=== PATIENT | male | born 1985 | race Caucasian/White ===

== ENCOUNTER 2019-08-14 18:13 | Inpatient (IN) | payer OTHER ==
[~2019-08-14] VITALS: Ht 177.8 cm; Wt 72.6 kg
[2019-08-14 18:15] VITALS: BP 121/85
--- NOTE | 2019-08-14 18:15 | NUR ---
PT PLACED IN CHAIR C.
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
--- NOTE | 2019-08-14 18:34 | NUR ---
CALL АННА AT [phone] FOR DISCHARGE
[2019-08-14] MEDS ORDERED: LIDOCAINE 2% 1000 MG/50 ML VIAL INJ ONE (19:10)
--- NOTE | 2019-08-14 19:10 | NUR ---
JOSE ENRIQUE GAVE REPORT TO PM BRANDIE RN.
--- NOTE | 2019-08-14 19:17 | NUR ---
EKG COMPLETE. LIDOCAINE PULLED OUT OF PYXIS. WOUND CARE SET UP AT BEDSIDE FOR ERMD. PT DROWSY AT THIS TIME, DIFFICULT TO AROUSE. PT ALTERED AT THIS TIME.
--- NOTE | 2019-08-14 19:26 | NUR ---
PT TAKEN TO CT VIA [facility]. ACCOMPANIED BY ROCIO MCALLISTER.
--- NOTE | 2019-08-14 19:45 | NUR ---
PT BACK FROM CT
--- NOTE | 2019-08-14 20:00 | NUR ---
ERMD DID NOT USE LIDO DUE TO USING KAITY FOR WOUND CARE.
[2019-08-14 20:10] LABS: BASOPHILS % (AUTO) 0.3 % (0.0-2.0); EOSINOPHILS # (AUTO) 0.1 K/uL (0-0.4); EOSINOPHILS % (AUTO) 0.7 % (0.0-4.0); HEMOGLOBIN 14.4 g/dL (12.0-18.0); LYMPHOCYTES # (AUTO) 1.6 K/uL (2.0-11.5); LYMPHOCYTES % (AUTO) 17.9 % (20.5-51.1); MEAN CORPUSCULAR HEMOGLOBIN 31 pg (27-31); MEAN CORPUSCULAR HGB CONC 34 g/dL (33-37); MEAN CORPUSCULAR VOLUME 91.7 fL (80-94); MONOCYTES # (AUTO) 0.5 K/uL (0.8-1.0); NEUTROPHILS # (AUTO) 6.7 K/uL (1.8-7.7); NEUTROPHILS % (AUTO) 75.1 % (42.2-75.2); PLATELET COUNT (AUTO) 271 K/uL (140-450); RED BLOOD CELL COUNT(AUTO) 4.69 MIL/uL (4.20-6.10); RED CELL DISTRIBUTION WIDTH 13.2 % (11.6-13.7)
--- NOTE | 2019-08-14 20:44 | NUR ---
PT SLEEPING IN BED. REMAINS DROWSY AND DIFFICULT TO AROUSE. OPENS EYES WHEN ASKED QUESTIONS BUT UNABLE TO PROVIDE ANSWER AT THIS TIME.
[2019-08-14 21:34] LABS: ANION GAP 13.2 (8-16); CARBON DIOXIDE 26.8 mmol/L (21-32); CHLORIDE 104 mmol/L (98-107); GLUCOSE 87 mg/dL (74-106); SODIUM SERUM 140 mmol/L (136-145)
[2019-08-14 21:35] LABS: ACETAMINOPHEN 3.1 ug/ml (10-30); ALBUMIN 3.9 g/dL (3.4-5.0); ASPARTATE AMINOTRANSFERASE 28 U/L (15-37); CREATININE 0.7 mg/dL (0.7-1.3); GFR ARICAN-AMERICAN 167 mL/min (>90); SALICYLATE < 2.8 mg/dL (2.8-20.0); TOTAL BILIRUBIN 0.4 mg/dL (0.0-1.0); UREA NITROGEN, BLOOD 14 mg/dL (7-18)
[2019-08-14] MEDS ORDERED: NACL 0.9% 2,000 ML IV ONE (21:55)
--- NOTE | 2019-08-14 22:00 | NUR ---
STRAIGHT CATH PERFORMED. MINIMAL URINE COLLECTED. WILL SEND TO LAB
--- NOTE | 2019-08-14 22:05 | NUR ---
WOUND CARE PERFORMED. 2 KAITY TO THE RIGHT SIDE OF HEAD DONE BY TITI. WOUND PICTURE TAKEN AND PUT IN CHART.
[2019-08-14 22:25] LABS: BARBITURATE, URINE NEGATIVE ng/ml (NEG <=200); BENZODIAZEPINE, URINE NEGATIVE ng/mL (NEG <=200); CANNABINOID, URINE POSITIVE ng/mL (NEG <=50); COCAINE, URINE NEGATIVE ng/mL (NEG <=300); OPIATE, URINE NEGATIVE ng/mL (NEG <=2000); PHENCYCLIDINE SCREEN,URINE NEGATIVE ng/mL (NEG <=25)
[2019-08-14] MEDS ORDERED: ACETAMINOPHEN 325 MG TAB PO PRN (23:00)
[2019-08-14] MEDS ORDERED: ONDANSETRON 4 MG/2 ML VIAL IVP PRN (23:00)
[2019-08-14] MEDS ORDERED: guaiFENesin DM 200/20 MG-10 ML 10 ML UDC PO PRN (23:00)
[2019-08-14] MEDS ORDERED: ALBUTEROL 0.083% 2.5 MG/3 ML NEBU INH PRN (23:00)
[2019-08-14] MEDS ORDERED: MAGNESIUM OXIDE 400 MG TAB PO PRN (23:00)
[2019-08-14] MEDS ORDERED: BISACODYL 10 MG SUPP RC PRN (23:00)
[2019-08-14] MEDS ORDERED: IPRATROPIUM 0.02% 0.5 MG/2.5 ML NEBU INH PRN (23:00)
[2019-08-14] MEDS ORDERED: ALUMINUM HYD/MAG/SIMETHICONE 30 ML UDC PO PRN (23:00)
[2019-08-14] MEDS ORDERED: MAG SULF 2000 MG/WATER PREMIX 50 ML IV PRN (23:00)
[2019-08-14] MEDS ORDERED: POTASSIUM CHLORIDE 10 MEQ TABER PO PRN (23:00)
[2019-08-14] MEDS ORDERED: cloNIDine 0.1 MG TAB PO PRN (23:00)
[2019-08-14] MEDS ORDERED: diphenhydrAMINE 50 MG/ML VIAL IVP PRN (23:00)
[2019-08-14] MEDS ORDERED: DOCUSATE SODIUM 250 MG GELCAP PO PRN (23:00)
[2019-08-14] MEDS ORDERED: ACETAMINOPHEN 650 MG SUPP RC PRN (23:00)
[2019-08-14] MEDS ORDERED: SODIUM PHOSPHATE 118 ML ENEM RC PRN (23:00)
--- NOTE | 2019-08-14 23:20 | NUR ---
Patient will be admitted to care of [facility]. Admited to TELE. Will go to room 125B. Belongings list completed. Report to PATRICIA SHAH.
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
--- NOTE | 2019-08-14 23:30 | NUR ---
CALLED TWICE TO PROVIDED NUMBER FROM [employer]. NO ANSWER AT THIS TIME. WILL FOLLOW UP.
--- NOTE | 2019-08-14 23:42 | NUR ---
UNABLE TO COMPLETE ADMISSION AT THIS TIME RT PT. UNABLE TO ANSWER QUESTIONS. DROWSY. OPENS EYES WHEN TOUCHED BUT CLOSES EYES BACK.
[2019-08-14 23:45] VITALS: BP 106/74
--- NOTE | 2019-08-15 01:17 | NUR ---
AWAKE AT THIS TIME. NO RESTLESSNESS. MOTHER AT BEDSIDE. PT. WATCHING TV. Addendum: 08/15/19 at 0152 by Griselda Gracia RN 08/15/19 01:52- ABOVE CHARTING ERROR.
--- NOTE | 2019-08-15 01:52 | NUR ---
TOOK MRSA NARES SWAB. WOKE UP AND INFORMED HIM THAT I WILL SWAB NOSE FOR MRSA AND PT. ABLE TO SAY "OHOMNN " APPROVAL OF PROCEDURE. WENT BACK TO SLEEP IMMEDIATELY. ABLE TO TURN HIMSELF . TURNS SELF . ROM X 4.
[2019-08-15 04:00] VITALS: BP 90/60
--- NOTE | 2019-08-15 07:05 | NUR ---
NO URINE OUTPUT WITH THIS SHIFT. PER ER NURSE THEY INSERTED IN AND OUT DENNEY CATHETER TO COLLECT URINE. WILL ENDORSE TO AM RN FOR CONTINUITY OF CARE. PT. AT THIS TIME STILL REFUSES TO TALK. PREFERS TO SLEEP.
--- NOTE | 2019-08-15 07:30 | NUR ---
Received bedside report from pm nurse Griselda. Pt asleep in bed, arousable by auditory stimuli. Pt aaox4, answers questions appropriately, able to follow complex commands. Bed alarm on, call light within reach. Right AC IV saline lock intact & asymptomatic.
[2019-08-15 08:00] VITALS: BP 94/62
--- NOTE | 2019-08-15 08:00 | NUR ---
Pt aaox4, medical hx obtained from pt. Pt in no distress, states he feels a lot better and wants to go home. Explained pt still needs to be seen by physician, verbalized understanding.
--- NOTE | 2019-08-15 08:46 | NUR ---
PATIENT HAS BEEN SCREENED AND CATEGORIZED LOW NUTRITION RISK. PATIENT WILL BE SEEN WITHIN 7 DAYS OF ADMISSION. 08/22/[address]
[2019-08-15] MEDS ORDERED: NACL 0.9% IRR 250 ML BOTTLE IR SCH (09:00)
--- NOTE | 2019-08-15 10:15 | NUR ---
Pt resting in bed, c/o 5/10 left forearm pain, noted with skin tear to left forearm. Per pt pain is tolerable, able to move fingers & wrists with min difficulty. Pt's friend at bedside visiting. Pt verbalized he wants to leave hospital because he feels ok, wants to find out when attending physician will come to see him. Pt is aaox4, able to amb with steady gait, PERRLA, able to follow complex commands. Dr Marci geronimo.
--- NOTE | 2019-08-15 10:30 | NUR ---
Received call back from Dr Covarrubias on the phone, informed him pt wants to leave hospital. Also notified of left arm pain. Per physician he will be in hospital in about 1-2hr. Pt notified and states he'll wait a little bit.
--- NOTE | 2019-08-15 11:00 | NUR ---
Pt insisting that he wants to leave AMA. Charge nurse notified. Encouraged to wait for physician for his safety. Pt verbalized understanding of risks including if he left AMA without being seen by attending physician. AMA form signed by pt. Right AC IV removed, catheter intact, site with scant bleeding covered with 4x4 gauze & tape. Right parietal laceration intact with 2 mykel, no swelling/discharge. Heart monitor removed. Pt donned his personal clothes & shoes. Amb off unit with steady gait, escorted to front lobby. Name band removed.
--- NOTE | 2019-08-17 09:59 | NUR ---
Wound care consult not done, pt. left AMA.
== END 2019-08-15 11:00 | disposition left against medical advice (07) | DRG 57 ==
LOC: MED 18:13 → EDBD 18:13 → MMU 22:48
PROVIDERS: ADMIT Internal Medicine Pulmonary Disease; ATTEND Internal Medicine Pulmonary Disease
PROC: 0HQ0XZZ Repair Scalp Skin, External Approach (ICD-10-PCS; principal; 2019-08-14)
DX: S06.0X0A Concussion without loss of consciousness, initial encounter (principal); S01.01XA Laceration without foreign body of scalp, initial encounter; X58.XXXA Exposure to other specified factors, initial encounter; Z53.29 Procedure and treatment not carried out because of patient's decision for other reasons; Y93.89 Activity, other specified; Y92.89 Other specified places as the place of occurrence of the external cause; Y99.8 Other external cause status
CPT/HCPCS: 36415; 70450; 80053; 80305; 85025; 93005; 99285; C1758; G0480; G0482; J2001

== ENCOUNTER 2019-08-20 20:15 | Emergency (ER) | payer OTHER ==
[~2019-08-20] VITALS: Ht 172.7 cm; Wt 72.1 kg
[2019-08-20 20:45] VITALS: BP 122/70
--- NOTE | 2019-08-20 21:51 | NUR ---
PT TAKEN TO BED 4
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
[2019-08-20] MEDS ORDERED: KETOROLAC 30 MG/ML VIAL IM ONE (22:20)
--- NOTE | 2019-08-20 22:31 | NUR ---
XRAY AT BEDSIDE.
--- NOTE | 2019-08-20 23:10 | NUR ---
EMT APPLIED SUGAR TONG WITH SLING. TOLERATED WELL.
[2019-08-20 23:16] VITALS: BP 119/73
--- NOTE | 2019-08-20 23:16 | NUR ---
Patient discharged with v/s stable. Written and verbal after care instructions given and explained. PT ENCOURAGED TO FOLLOW UP WITH ORTHOPEDIC DOCTOR OR BONE SPECIALIST IN THE NET 2 DAYS. Patient alert, oriented and verbalized understanding of instructions. Ambulatory with steady gait. All questions addressed prior to discharge. ID band removed. Patient advised to follow up with PMD. Rx of NAPROSYN 500 MG WAS given. Patient educated on indication of medication including possible reaction and side effects. Opportunity to ask questions provided and answered.
== END 2019-08-20 23:16 | disposition home or self-care (01) ==
LOC: MED 20:15
DX: S52.202A Unspecified fracture of shaft of left ulna, initial encounter for closed fracture (principal); J45.909 Unspecified asthma, uncomplicated; Z48.02 Encounter for removal of sutures; W20.8XXA Other cause of strike by thrown, projected or falling object, initial encounter; Y93.89 Activity, other specified; Y92.89 Other specified places as the place of occurrence of the external cause; Y99.8 Other external cause status
CPT/HCPCS: 29125; 73090; 96372; 99283; J1885; Q0092